=== PATIENT | female | born 1990 ===

== ENCOUNTER 2021-03-28 06:01 | Inpatient (IN) | payer SELFPAY ==
[2021-03-28] MEDS ORDERED: Oxytocin/0.9 % Sodium Chloride 30 UNIT/500 ML BAG ONE (06:14)
[2021-03-28] MEDS ORDERED: Lidocaine 2% 5 ML SDV ONE (06:29)
[2021-03-28] MEDS ORDERED: Lidocaine 1% 0 ML ONE (06:30)
[2021-03-28] MEDS ORDERED: Lidocaine 1% 20 ML MDV ONE ×2 (06:31→06:57)
[2021-03-28] MEDS ORDERED: Terbutaline 1 MG/ML SDV SUBCUT PRN (07:12)
[2021-03-28] MEDS ORDERED: Misoprostol 200 MCG Tab PO PRN (07:12)
[2021-03-28] MEDS ORDERED: Sodium Chloride 0.9% 2.5 ML Syringe FLUSH PRN (07:12)
[2021-03-28] MEDS ORDERED: Carboprost Tromethamine 250 MCG/1 ML Amp IM PRN (07:12)
[2021-03-28] MEDS ORDERED: Nalbuphine 10 MG/1 ML Vial IVPUSH PRN (07:12)
[2021-03-28] MEDS ORDERED: Tranexamic Acid 1,000 MG in Sodium Chloride 0.9% 100 ML IV PRN (07:12)
[2021-03-28] MEDS ORDERED: Misoprostol 25 MCG (1/4 of 100 MCG) Tab VAG PRN ×2 (07:12)
[2021-03-28] MEDS ORDERED: Sodium Chloride 0.9% 20 ML SDV IV PRN (07:12)
[2021-03-28] MEDS ORDERED: Water For Irrigation,Sterile 1,000 ML Container IRR PRN (07:12)
[2021-03-28] MEDS ORDERED: Lidocaine 1% 50 ML MDV INJECT PRN (07:12)
[2021-03-28] MEDS ORDERED: Methylergonovine 0.2 MG/1 ML Amp IM PRN (07:12)
[2021-03-28] MEDS ORDERED: Butorphanol 1 MG/ML SDV IVPUSH PRN (07:12)
[2021-03-28] MEDS ORDERED: Sodium Chloride 0.9% 10 ML Syringe FLUSH PRN (07:12)
[2021-03-28] MEDS ORDERED: Oxytocin/0.9 % Sodium Chloride 30 UNIT/500 ML BAG IV SCH ×2 (07:15)
[2021-03-28] MEDS ORDERED: Lactated Ringers 1,000 ML IV SCH (07:15)
[2021-03-28] MEDS ORDERED: Benzocaine/Menthol 20%-0.5% Spray 78 GM Cannister TOP PRN (07:24)
[2021-03-28] MEDS ORDERED: Docusate Sodium 100 MG Cap PO PRN (07:24)
[2021-03-28] MEDS ORDERED: Lanolin 100% Cream 7 GM Tube TOP PRN (07:24)
[2021-03-28] MEDS ORDERED: oxyCODONE 5 MG Tab PO PRN (07:24)
[2021-03-28] MEDS ORDERED: Bisacodyl 10 MG Supp RECTAL PRN (07:24)
[2021-03-28] MEDS ORDERED: Witch Hazel Medicated Pads 40/Jar TOP PRN (07:24)
--- NOTE | 2021-03-28 07:32 | PCM.DEL ---
L & D Note - General Info Date of Service: 03/28/21 Mother's Due Date: 03/23/21 - Delivery Note Labor: Spontaneous Delivery Outcome: Livebirth Infant Delivery Method: Spontaneous Vaginal Delivery-Single Presentation: Vertex Nuchal Cord: Present, Reduced (after delivery of body) Anesthesia Type: Local, Pudendal Anesthetic: Lidocaine (Xylocaine) 1% Plain Amniotic Fluid Description: Meconium Stained Episiotomy Type: None Laceration: 2nd Degree Suture type: Vicryl Suture size: 2-0 Placenta: Intact, Spontaneous Cord: 3 Vessels Estimated Blood Loss: 400 Resuscitation Needed: No : Stimulated, Warmed Score 1 min: 8 Score 5 min: 9 Delivery Comments (Free Text/Narrative):: Live female infant, weight pending - General Info Date of Service: 03/28/21 - Patient Data Weight - Most Recent: 68.039 kg Lab Results Last 24 Hours: Laboratory Results - last 24 hr 03/28/21 Range/Units 06:10 WBC 8.65 (4.0-11.0) K/uL RBC 4.06 L (4.30-5.90) M/uL Hgb 12.8 (12.0-16.0) g/dL Hct 37.1 (36.0-46.0) % MCV 91.4 (80.0-98.0) fL MCH 31.5 (27.0-32.0) pg MCHC 34.5 (31.0-37.0) g/dL RDW Std Deviation 42.7 (28.0-62.0) fl RDW Coeff of [place] 13 (11.0-15.0) % Plt Count 182 (150-400) K/uL MPV 11.60 (7.40-12.00) fL Nucleated RBC % 0.0 /100WBC Nucleated RBCs # 0 K/uL Med Orders - Current: Current Medications Acetaminophen (Acetaminophen 500 Mg Tab) 1,000 mg PO Q6H PRN PRN Reason: Pain (mild 1-3) Benzocaine/Menthol (Benzocaine/Menthol 20%-0.5% [place] 78 Gm Cannister) 78 gm TOP ASDIRECTED PRN PRN Reason: Perineal Comfort Measure Bisacodyl (Bisacodyl 10 Mg Supp) 10 mg RECTAL ONETIME PRN PRN Reason: Constipation Butorphanol Tartrate (Butorphanol 1 Mg/Ml Sdv) 1 mg IVPUSH Q1H PRN PRN Reason: Pain (severe 7-10) Carboprost Tromethamine (Carboprost Tromethamine 250 Mcg/1 Ml Amp) 250 mcg IM ASDIRECTED PRN PRN Reason: Post Hemorrhage Docusate Sodium (Docusate Sodium 100 Mg Cap) 100 mg PO Q12H PRN PRN Reason: Constipation Emollient Ointment (Lanolin 100% Cream 7 Gm Tube) 0 gm TOP ASDIRECTED PRN PRN Reason: Sore Nipples Lactated Ringer's (Ringers, Lactated) 1,000 mls @ 150 mls/hr IV ASDIRECTED RICK Oxytocin/Sodium Chloride (Oxytocin 30 Unit In Ns 0.9% 500 Ml Premix) 30 unit in 500 mls @ 999 mls/hr IV TITRATE RICK Tranexamic Acid 1,000 mg/ (Sodium Chloride) 110 mls @ 660 mls/hr IV ONETIME PRN PRN Reason: Bleeding Oxytocin/Sodium Chloride (Oxytocin 30 Unit In Ns 0.9% 500 Ml Premix) 30 unit in 500 mls @ 2 mls/hr IV TITRATE RICK; Protocol Ibuprofen (Ibuprofen 800 Mg Tab) 800 mg PO Q8H PRN PRN Reason: Cramping Lidocaine HCl (Lidocaine 1% 50 Ml Mdv) 50 ml INJECT ONETIME PRN PRN Reason: Laceration repair Methylergonovine Maleate (Methylergonovine 0.2 Mg/1 Ml Amp) 0.2 mg IM ASDIRECTED PRN PRN Reason: Post Hemorrhage Misoprostol (Misoprostol 200 Mcg Tab) 200 mcg PO ONETIME PRN PRN Reason: Post Hemorrhage Misoprostol (Misoprostol 25 Mcg (1/4 Of 100 Mcg) Tab) 25 mcg VAG ONETIME PRN PRN Reason: Cervical Ripening Misoprostol (Misoprostol 25 Mcg (1/4 Of 100 Mcg) Tab) 25 mcg VAG Q4H PRN PRN Reason: Cervical Ripening Nalbuphine HCl (Nalbuphine 10 Mg/1 Ml Vial) 10 mg IVPUSH Q1H PRN PRN Reason: Pain (severe 7-10) Oxycodone HCl (Oxycodone 5 Mg Tab) 5 mg PO Q2H PRN PRN Reason: Pain (severe 7-10) Sodium Chloride (Sodium Chloride 0.9% 10 Ml Syringe) 10 ml FLUSH ASDIRECTED PRN PRN Reason: Keep Vein Open Sodium Chloride (Sodium Chloride 0.9% 2.5 Ml Syringe) 2.5 ml FLUSH ASDIRECTED PRN PRN Reason: Keep Vein Open Sodium Chloride (Sodium Chloride 0.9% 20 Ml Sdv) 10 ml IV ASDIRECTED PRN PRN Reason: IV Use Sterile Water (Water For Irrigation,Sterile 1,000 Ml Container) 1,000 ml IRR ASDIRECTED PRN PRN Reason: delivery Terbutaline Sulfate (Terbutaline 1 Mg/Ml Sdv) 0.25 mg SUBCUT ASDIRECTED PRN PRN Reason: Tacysystole Witch Kristan (Witch Kristan Medicated Pads 40/Jar) 1 pad TOP ASDIRECTED PRN PRN Reason: comfort care Discontinued Medications Oxytocin/Sodium Chloride (Oxytocin 30 Unit In Ns 0.9% 500 Ml Premix) Confirm Administered Dose 30 unit in 500 mls @ as directed .ROUTE .STK-MED ONE Stop: 03/28/21 06:15 Lidocaine HCl (Xylocaine-Mpf 1%) Confirm Administered Dose 2 mls @ as directed .ROUTE .STK-MED ONE Stop: 03/28/21 06:31 Lidocaine (Lidocaine 2% 5 Ml Sdv) Confirm Administered Dose 5 ml .ROUTE .STK-MED ONE Stop: 03/28/21 06:30 Lidocaine HCl (Lidocaine 1% 20 Ml Mdv) Confirm Administered Dose 20 ml .ROUTE .STK-MED ONE Stop: 03/28/21 06:32 Lidocaine HCl (Lidocaine 1% 20 Ml Mdv) Confirm Administered Dose 40 ml .ROUTE .STK-MED ONE Stop: 03/28/21 06:58 - Problem List & Annotations (1) Vaginal delivery SNOMED Code(s): 127887964 Code(s): O80 - ENCOUNTER FOR FULL-TERM UNCOMPLICATED DELIVERY Status: Acute Current Visit: Yes - Problem List Review Problem List Initiated/Reviewed/Updated: Yes - My Orders Last 24 Hours: My Active Orders 03/28/21 Breakfast Regular Diet [DIET] 03/28/21 07:12 Patient Status [ADT] Routine Bedrest Bathroom Privileges [RC] ASDIRECTED Communication Order [RC] ASDIRECTED Communication Order [RC] ASDIRECTED Communication Order [RC] ASDIRECTED Heart Tones [RC] CONTINUOUS Non Stress Test [RC] PER UNIT ROUTINE May Shower [RC] ASDIRECTED Notify Provider [RC] PRN Notify Provider [RC] PRN Notify Provider [RC] PRN Notify Provider [RC] STAT Oxygen Therapy [RC] ASDIRECTED Up ad Jackie [RC] ASDIRECTED Vaginal Exam [RC] PRN Vaginal Exam [RC] PRN Vital Signs [RC] PER UNIT ROUTINE Vital Signs [RC] PER UNIT ROUTINE RPR (SYPHILIS SERO) W/ RFLX [REF] Routine TYPE AND SCREEN [BBK] Routine Butorphanol [Stadol] 1 mg IVPUSH Q1H PRN Carboprost Tromethamine [Hemabate DS] 250 mcg IM ASDIRECTED PRN Lidocaine 1% [Xylocaine 1%] 50 ml INJECT ONETIME PRN Methylergonovine [Methergine] 0.2 mg IM ASDIRECTED PRN Nalbuphine [Nubain] 10 mg IVPUSH Q1H PRN Sodium Chloride 0.9% [Normal Saline] 10 ml IV ASDIRECTED PRN Sodium Chloride 0.9% [Saline Flush] 10 ml FLUSH ASDIRECTED PRN Sodium Chloride 0.9% [Saline Flush] 2.5 ml FLUSH ASDIRECTED PRN Terbutaline [Brethine] 0.25 mg SUBCUT ASDIRECTED PRN Tranexamic Acid [Cyklokapron] 1,000 mg Sodium Chloride 0.9% [Normal Saline] 100 ml IV ONETIME Water For Irrigation,Sterile [Sterile Water for Irrigation] 1,000 ml IRR ASDIRECTED PRN miSOPROStoL [Cytotec] 200 mcg PO ONETIME PRN miSOPROStoL [Cytotec] 25 mcg VAG ONETIME PRN miSOPROStoL [Cytotec] 25 mcg VAG Q4H PRN Scalp Electrode [WOMSER] Per Unit Routine Peripheral IV Insertion Adult [OM.PC] Routine Resuscitation Status Routine 03/28/21 07:15 CORONAVIRUS COVID-19 CALIN [MOLEC] Stat Lactated Ringers [Ringers, Lactated] 1,000 ml IV ASDIRECTED Oxytocin/0.9 % Sodium Chloride [Oxytocin 30 Unit in NS 0.9% 500 ML Premix] 30 unit in 500 ml IV TITRATE Oxytocin/0.9 % Sodium Chloride [Oxytocin 30 Unit in NS 0.9% 500 ML Premix] 30 unit in 500 ml IV TITRATE Medication Administration Instruction [OM.PC] Q3H 03/28/21 07:24 Notify Provider Vital Signs [RC] ASDIRECTED Acetaminophen [Tylenol Extra Strength] 1,000 mg PO Q6H PRN Benzocaine/Menthol [Dermoplast Pain Relief 20%-0.5% [place]] 78 gm TOP ASDIRECTED PRN Docusate Sodium [Colace] 100 mg PO Q12H PRN Ibuprofen [Motrin] 800 mg PO Q8H PRN Lanolin [Lansinoh HPA] See Dose Instructions TOP ASDIRECTED PRN bisacodyL [Dulcolax] 10 mg RECTAL ONETIME PRN oxyCODONE 5 mg PO Q2H PRN witch Kristan [Tucks] 1 pad TOP ASDIRECTED PRN Breast Pump [WOMSER] Per Unit Routine 03/28/21 07:25 Patient Status [ADT] Routine Cooling Warming Measures [RC] ASDIRECTED May Shower [RC] ASDIRECTED Up ad Jackie [RC] ASDIRECTED Vital Signs [RC] PER UNIT ROUTINE Assess Lochia [WOMSER] Per Unit Routine Assess Uterine Involution [WOMSER] Per Unit Routine Ice Therapy [OM.PC] Per Unit Routine Perineal Care [OM.PC] Per Unit Routine Peripheral IV Discontinue [OM.PC] Routine Sitz Bath [OM.PC] Per Unit Routine 03/29/21 05:11 HEMOGLOBIN/HEMATOCRIT,HH [HEME] Timed - Assessment Assessment:: 30yo s/p at 40w5d - Plan Plan:: Admit to unit for routine cares. A+, Rubella immune, GBS negative
[2021-03-28] MEDS ORDERED: Lidocaine 1% 20 ML MDV INJECT PRN (08:42)
--- NOTE | 2021-03-28 09:49 | OR ---
SURGEON: Parul Allan MD DATE OF PROCEDURE: 03/28/2021 PREOPERATIVE DIAGNOSES: 1. A 30-year-old G2, P1-0-0-1 at 40 weeks and 5 days gestation. 2. Labor. 3. Group B Streptococcus negative. 4. Marginal cord insertion. 5. COVID positive in October 2020. POSTOPERATIVE DIAGNOSES: 1. A 30-year-old G2, P2-0-0-2 at 40 weeks and 5 days gestation. 2. Labor. 3. Group B Streptococcus negative. 4. Marginal cord insertion. 5. COVID positive in October 2020. PROCEDURE: Spontaneous vaginal delivery and repair of second-degree perineal laceration. PRIMARY SURGEON: Parul Allan MD ANESTHESIA: Pudendal nerve block and local in the perineum. ESTIMATED BLOOD LOSS: 400 mL. FINDINGS: Live female infant, cephalic presentation. scores of 8 and 9 at 1 and 5 minutes respectively. Thin meconium. Nuchal cord x1 reduced after delivery of body. Placenta intact with 3-vessel cord. Second-degree perineal laceration. DESCRIPTION OF PROCEDURE: This is a 30-year-old G2, P1-0-0-1 who presented at 40 weeks and 5 days' gestation complaining of contractions. Upon presentation, her cervix was found to be 7 cm dilated. She was admitted to Labor and Delivery, and I was called. I arrived to the room and examined the patient. She was found to have complete cervical dilation with the infant's head at +2 station. The patient desired medication for pain relief, and a pudendal nerve block was performed. 10 mL of 1% lidocaine without epinephrine was injected bilaterally 1 cm superior to the ischial spine. The patient began pushing, spontaneous rupture of membranes occurred, and meconium noted. The patient continued to push and subsequently delivered a live female infant. The head was delivered, followed quickly by the shoulders and remainder of the body. The infant was placed on maternal abdomen. Nuchal cord x1 was reduced. After approximately 60 seconds, the cord clamped and cut. Cord blood was obtained. Placenta then delivered intact with 3-vessel cord via the Joseph-Patten maneuver. The perineum was inspected, and a large second-degree perineal laceration was noted. This was infiltrated with 1% lidocaine for adequate analgesia. The perineal laceration was repaired to anatomy and hemostasis with 2-0 Vicryl suture. The fundus was firm below the umbilicus with minimal bleeding. The patient and tolerated the delivery well. [id number] / MODL /[id number] MTDD
[2021-03-28] MEDS: Ibuprofen 800 MG Tab PO PRN ×2 (11:32→19:27)
[2021-03-28] MEDS: Acetaminophen 500 MG Tab PO PRN ×2 (15:00→19:27)
[2021-03-29] MEDS: Acetaminophen 500 MG Tab PO PRN ×2 (01:25→09:50)
[2021-03-29] MEDS: Ibuprofen 800 MG Tab PO PRN ×2 (03:21→11:45)
--- NOTE | 2021-03-29 08:26 | PCM.PNPP ---
- General Info Date of Service: 03/29/21 Subjective Update: Patient states most pain is cramping, has no vaginal pain. Bleeding minimal. Functional Status: Reports: Pain Controlled, Tolerating Diet, Ambulating, Urinating - Review of Systems General: Reports: No Symptoms HEENT: Reports: No Symptoms Pulmonary: Reports: No Symptoms Cardiovascular: Reports: No Symptoms Gastrointestinal: Reports: No Symptoms Genitourinary: Reports: No Symptoms Musculoskeletal: Reports: No Symptoms Skin: Reports: No Symptoms Neurological: Reports: No Symptoms Psychiatric: Reports: No Symptoms - Patient Data Vital Signs - Most Recent: Last Vital Signs Temp 36.2 C 03/28/21 20:30 Pulse 75 03/28/21 20:30 Resp 16 03/28/21 20:30 BP 107/54 L 03/28/21 20:30 Pulse Ox 97 03/28/21 20:30 Weight - Most Recent: 68.039 kg Lab Results - Last 24 Hours: Laboratory Results - last 24 hr 03/28/21 03/29/21 Range/Units 06:10 07:20 Hgb 11.0 L (12.0-16.0) g/dL Hct 32.7 L (36.0-46.0) % Blood Type A POSITIVE Antibody Screen NEGATIVE Med Orders - Current: Current Medications Acetaminophen (Acetaminophen 500 Mg Tab) 1,000 mg PO Q6H PRN PRN Reason: Pain (mild 1-3) Last Admin: 03/29/21 01:25 Dose: 1,000 mg Documented by: Benzocaine/Menthol (Benzocaine/Menthol 20%-0.5% [place] 78 Gm Cannister) 78 gm TOP ASDIRECTED PRN PRN Reason: Perineal Comfort Measure Last Admin: 03/28/21 10:19 Dose: 1 can Documented by: Bisacodyl (Bisacodyl 10 Mg Supp) 10 mg RECTAL ONETIME PRN PRN Reason: Constipation Butorphanol Tartrate (Butorphanol 1 Mg/Ml Sdv) 1 mg IVPUSH Q1H PRN PRN Reason: Pain (severe 7-10) Carboprost Tromethamine (Carboprost Tromethamine 250 Mcg/1 Ml Amp) 250 mcg IM ASDIRECTED PRN PRN Reason: Post Hemorrhage Docusate Sodium (Docusate Sodium 100 Mg Cap) 100 mg PO Q12H PRN PRN Reason: Constipation Last Admin: 03/28/21 19:27 Dose: 100 mg Documented by: Emollient Ointment (Lanolin 100% Cream 7 Gm Tube) 0 gm TOP ASDIRECTED PRN PRN Reason: Sore Nipples Lactated Ringer's (Ringers, Lactated) 1,000 mls @ 150 mls/hr IV ASDIRECTED RICK Last Admin: 03/28/21 06:10 Dose: 150 mls/hr Documented by: Oxytocin/Sodium Chloride (Oxytocin 30 Unit In Ns 0.9% 500 Ml Premix) 30 unit in 500 mls @ 999 mls/hr IV TITRATE [facility] Last Admin: 03/28/21 06:52 Dose: 999 mls/hr Documented by: Tranexamic Acid 1,000 mg/ (Sodium Chloride) 110 mls @ 660 mls/hr IV ONETIME PRN PRN Reason: Bleeding Oxytocin/Sodium Chloride (Oxytocin 30 Unit In Ns 0.9% 500 Ml Premix) 30 unit in 500 mls @ 2 mls/hr IV TITRATE [facility]; Protocol Ibuprofen (Ibuprofen 800 Mg Tab) 800 mg PO Q8H PRN PRN Reason: Cramping Last Admin: 03/29/21 03:21 Dose: 800 mg Documented by: Lidocaine HCl (Lidocaine 1% 50 Ml Mdv) 50 ml INJECT ONETIME PRN PRN Reason: Laceration repair Lidocaine HCl (Lidocaine 1% 20 Ml Mdv) 20 ml INJECT ASDIRECTED PRN PRN Reason: Perineal Comfort Measure Last Admin: 03/28/21 06:51 Dose: 60 ml Documented by: Methylergonovine Maleate (Methylergonovine 0.2 Mg/1 Ml Amp) 0.2 mg IM ASDIRECTED PRN PRN Reason: Post Hemorrhage Misoprostol (Misoprostol 200 Mcg Tab) 200 mcg PO ONETIME PRN PRN Reason: Post Hemorrhage Misoprostol (Misoprostol 25 Mcg (1/4 Of 100 Mcg) Tab) 25 mcg VAG ONETIME PRN PRN Reason: Cervical Ripening Misoprostol (Misoprostol 25 Mcg (1/4 Of 100 Mcg) Tab) 25 mcg VAG Q4H PRN PRN Reason: Cervical Ripening Nalbuphine HCl (Nalbuphine 10 Mg/1 Ml Vial) 10 mg IVPUSH Q1H PRN PRN Reason: Pain (severe 7-10) Oxycodone HCl (Oxycodone 5 Mg Tab) 5 mg PO Q2H PRN PRN Reason: Pain (severe 7-10) Sodium Chloride (Sodium Chloride 0.9% 10 Ml Syringe) 10 ml FLUSH ASDIRECTED PRN PRN Reason: Keep Vein Open Sodium Chloride (Sodium Chloride 0.9% 2.5 Ml Syringe) 2.5 ml FLUSH ASDIRECTED PRN PRN Reason: Keep Vein Open Sodium Chloride (Sodium Chloride 0.9% 20 Ml Sdv) 10 ml IV ASDIRECTED PRN PRN Reason: IV Use Sterile Water (Water For Irrigation,Sterile 1,000 Ml Container) 1,000 ml IRR ASDIRECTED PRN PRN Reason: delivery Terbutaline Sulfate (Terbutaline 1 Mg/Ml Sdv) 0.25 mg SUBCUT ASDIRECTED PRN PRN Reason: Tacysystole Witch Kristan (Witch Kristan Medicated Pads 40/Jar) 1 pad TOP ASDIRECTED PRN PRN Reason: comfort care Last Admin: 03/28/21 10:19 Dose: 1 tub Documented by: Discontinued Medications Oxytocin/Sodium Chloride (Oxytocin 30 Unit In Ns 0.9% 500 Ml Premix) Confirm Administered Dose 30 unit in 500 mls @ as directed .ROUTE .STSwoodoo-MED ONE Stop: 03/28/21 06:15 Last Admin: 03/28/21 08:39 Dose: Not Given Documented by: Lidocaine HCl (Xylocaine-Mpf 1%) Confirm Administered Dose 2 mls @ as directed .ROUTE .STSwoodoo-MED ONE Stop: 03/28/21 06:31 Last Admin: 03/28/21 08:41 Dose: Not Given Documented by: Lidocaine (Lidocaine 2% 5 Ml Sdv) Confirm Administered Dose 5 ml .ROUTE .STK-MED ONE Stop: 03/28/21 06:30 Last Admin: 03/28/21 08:41 Dose: Not Given Documented by: Lidocaine HCl (Lidocaine 1% 20 Ml Mdv) Confirm Administered Dose 20 ml .ROUTE .STK-MED ONE Stop: 03/28/21 06:32 Last Admin: 03/28/21 08:41 Dose: Not Given Documented by: Lidocaine HCl (Lidocaine 1% 20 Ml Mdv) Confirm Administered Dose 40 ml .ROUTE .STSwoodoo-MED ONE Stop: 03/28/21 06:58 Last Admin: 03/28/21 08:41 Dose: Not Given Documented by: - Interaction Infant Disposition, : to Nursery Infant Feeding: Breastfed Infant; Nursed Well Support Person: - Recovery Exam Fundal Tone: Firm Fundal Level: 3 Fingerbreadths Below Umbilicus Fundal Placement: Midline Lochia Amount: Scant Lochia Color: Rubra/Red Bladder Status: Voiding Urinary Elimination: Voided - Exam General: Alert, Oriented Neck: Supple Lungs: Normal Respiratory Effort GI/Abdominal Exam: Soft, Non-Tender, No Distention Extremities: Non-Tender, No Pedal Edema Skin: Warm, Dry, Intact Neurological: No New Focal Deficit Psy/Mental Status: Alert, Normal Affect, Normal Mood - Problem List & Annotations (1) Vaginal delivery SNOMED Code(s): 478904436 Code(s): O80 - ENCOUNTER FOR FULL-TERM UNCOMPLICATED DELIVERY Status: Acute Current Visit: Yes - Problem List Review Problem List Initiated/Reviewed/Updated: Yes - My Orders Last 24 Hours: My Active Orders 03/28/21 07:25 Patient Status [ADT] Routine Cooling Warming Measures [RC] ASDIRECTED May Shower [RC] ASDIRECTED Up ad Jackie [RC] ASDIRECTED Vital Signs [RC] PER UNIT ROUTINE Assess Lochia [WOMSER] Per Unit Routine Assess Uterine Involution [WOMSER] Per Unit Routine Ice Therapy [OM.PC] Per Unit Routine Perineal Care [OM.PC] Per Unit Routine Peripheral IV Discontinue [OM.PC] Routine Sitz Bath [OM.PC] Per Unit Routine 03/28/21 07:45 RPR (SYPHILIS SERO) W/ RFLX [REF] Routine 03/28/21 08:42 Lidocaine 1% [Xylocaine 1%] 20 ml INJECT ASDIRECTED PRN 03/29/21 08:24 Ready for Discharge [RC] PER UNIT ROUTINE - Assessment Assessment:: 30yo s/p at 40w5d, PPD#1 - Plan Plan:: Continue routine cares. A+, Rubella immune, GBS negative Patient desires discharge home today if cleared by Wind Tunnel Technician. Reviewed discharge instructions/precautions. All questions answered.
== END 2021-03-29 12:05 | disposition home or self-care (01) | DRG 807 ==
LOC: MW.OBCHECK 06:01 → MW.OB 06:03 → MW.OBCHECK 06:15 → MW.OB 06:15 → OBSVTOIN 06:51 → MW.OB 12:58
PROVIDERS: ADMIT Obstetrics & Gynecology; ATTEND Obstetrics & Gynecology
PROC: 10E0XZZ Delivery of Products of Conception, External Approach (ICD-10-PCS; principal; 2021-03-28)
PROC: 0KQM0ZZ Repair Perineum Muscle, Open Approach (ICD-10-PCS; 2021-03-28)
DX: O77.0 Labor and delivery complicated by meconium in amniotic fluid (principal); Z37.0 Single live birth; Z20.822 Contact with and (suspected) exposure to COVID-19; O70.1 Second degree perineal laceration during delivery; Z3A.40 40 weeks gestation of pregnancy; Z86.16 Personal history of COVID-19
CPT/HCPCS: 36415; 59025; 59409; 85014; 85018; 85027; 86592; 86850; 86900; 86901; A9270-GY; J2590; J7120; U0002